=== PATIENT | male | born 1985 | race American Indian/Alaskan Native ===

== ENCOUNTER 2019-10-20 19:16 | Emergency (ER) | payer BC ==
[2019-10-20] MEDS ORDERED: HYDROcodone/ACETAMINOPHEN 5-325 MG TAB PO ONE (20:09)
--- NOTE | 2019-10-20 20:33 | Emergency Department Report ---
ED Male HPI - General Chief complaint: Urogenital-Male Stated complaint: LF TESTICLE PAIN Time Seen by Provider: 10/20/19 20:04 Source: patient Mode of arrival: Ambulatory Limitations: No Limitations - History of Present Illness Initial comments: Patient is a 34-year-old male who presents emergency room with complaints of left testicular pain that began 4 days ago. He states he began to have left testicular swelling 3 days ago. He denies any injury. He denies any penile discharge, dysuria, dark urine, abdominal pain, hematuria. He denies ever having this in the past. He denies any past medical history or allergies to medications. - Related Data Previous Rx's Medication Instructions Recorded Last Taken Type Doxycycline Hyclate [Doxycycline 100 mg PO BID 10 Days #20 tab 10/20/19 Unknown Rx Hyclate TAB] traMADoL [Ultram 50 MG tab] 50 mg PO Q6HR PRN #10 tablet 10/20/19 Unknown Rx Allergies Allergy/AdvReac Type Severity Reaction Status Date / Time pollen extracts Allergy Hives Verified 10/20/19 19:28 ED Review of Systems ROS: Stated complaint: LF TESTICLE PAIN Other details as noted in HPI Comment: All other systems reviewed and negative ED Past Medical Hx - Past Medical History Previous Medical History?: No - Surgical History Past Surgical History?: No - Social History Smoking Status: Current Every Day Smoker Substance Use Type: Alcohol, Marijuana - Medications Home Medications: Home Medications Medication Instructions Recorded Confirmed Last Taken Type Doxycycline Hyclate [Doxycycline 100 mg PO BID 10 Days #20 tab 10/20/19 Unknown Rx Hyclate TAB] traMADoL [Ultram 50 MG tab] 50 mg PO Q6HR PRN #10 tablet 10/20/19 Unknown Rx ED Physical Exam - General Limitations: No Limitations General appearance: alert, in no apparent distress - Head Head exam: Present: atraumatic, normocephalic - Eye Eye exam: Present: normal appearance - ENT ENT exam: Present: mucous membranes moist - Respiratory Respiratory exam: Present: normal lung sounds bilaterally. Absent: respiratory distress, wheezes, rales, rhonchi, stridor, chest wall tenderness, accessory muscle use, decreased breath sounds, prolonged expiratory - Cardiovascular Cardiovascular Exam: Present: regular rate, normal rhythm, normal heart sounds. Absent: systolic murmur, diastolic murmur, rubs, gallop - GI/Abdominal GI/Abdominal exam: Present: soft, normal bowel sounds. Absent: distended, tenderness, guarding, rebound, rigid - exam: Present: testicular tenderness (left testicular ttp, edema present to the left scrotal region, ttp over the left epididymal appendage), other (normal testicular lie, normal cremasteric reflex, male hide and skin colerer was not available in the emergency department, Dana, EMT used as a hide and skin colerer). Absent: urethral discharge - Neurological Exam Neurological exam: Present: alert, oriented X3 - Psychiatric Psychiatric exam: Present: normal affect, normal mood - Skin Skin exam: Present: warm, dry, intact ED Course Vital Signs 10/20/19 19:27 Temperature 98.7 F Pulse Rate 86 Respiratory 18 Rate Blood Pressure 121/82 O2 Sat by Pulse 99 Oximetry ED Medical Decision Making - Lab Data Lab Results 10/20/19 Range/Units 20:30 Urine Color Yellow (Yellow) Urine Turbidity Clear (Clear) Urine pH 6.0 (5.0-7.0) Ur Specific [place] 1.025 (1.003-1.030) Urine Protein <15 mg/dl (Negative) mg/dL Urine Glucose (UA) Neg (Negative) mg/dL Urine Ketones Neg (Negative) mg/dL Urine Blood Neg (Negative) Urine Nitrite Neg (Negative) Urine Bilirubin Neg (Negative) Urine Urobilinogen < 2.0 (<2.0) mg/dL Ur Leukocyte Esterase Tr (Negative) Urine WBC (Auto) 12.0 H (0.0-6.0) /HPF Urine RBC (Auto) 4.0 (0.0-6.0) /HPF U Epithel Cells (Auto) 1.0 (0-13.0) /HPF Urine Mucus 1+ /HPF - Radiology Data Radiology results: report reviewed US testicular doppler comp INDICATION / CLINICAL INFORMATION: left testicular swelling and pain. COMPARISON: None available. FINDINGS: Testicular size and echogenicity is normal. Doppler imaging shows normal testicular blood flow. There is a small left hydrocele. The left epididymis is slightly prominent and there are 2 epididymal cysts each measuring approximately 6 mm in diameter. The right epididymis is morphologically normal. There is ovoid structure adjacent to the upper pole of the left testicle consistent with appendix testis. IMPRESSION: 1. Findings suggestive of left epididymitis with small left hydrocele. 2. Small left epididymal cyst. 3. No evidence of testicular torsion. Signer Name: Bro Recinos MD Signed: 10/20/2019 9:52 PM Workstation Name: [id number] Transcribed By: MANISH Dictated By: Bro Recinos MD Electronically Authenticated By: Bro Recinos MD Signed Date/Time: 10/20/192151 DD/ 45 TD/TT: - Medical Decision Making Patient is a 34-year-old male who presents emergency room with complaints of left testicular pain that began 4 days ago. He states he began to have left testicular swelling 3 days ago. He denies any injury. He denies any penile discharge, dysuria, dark urine, abdominal pain, hematuria. He denies ever having this in the past. He denies any past medical history or allergies to medications. Vitals are stable. On exam: left testicular ttp, edema present to the left scrotal region, ttp over the left epididymal appendage, normal testicular lie, normal cremasteric reflex, male hide and skin colerer was not available in the emergency department, [facility] used as a hide and skin colerer. UA with white blood cells and trace leukocyte esterase. G/C sent. US testicular: 1. Findings suggestive of left epididymitis with small left hydrocele. 2. Small left epididymal cyst. 3. No evidence of testicular torsion. Patient given ceftriaxone while in the ED. Patient given prescription for doxycycline. advised pt please take medication as prescribed. Do not drive or operate heavy machinery while taking pain medication. 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 Please have any partner tested and treated as well. Please go to the health department or another clinic for a full STD panel. Do not engage in sexual intercourse for 2 weeks. Please follow-up with a urologist. Return to the emergency room for any new or worsening symptoms. - Differential Diagnosis STD, UTI, hydrocele, epididymitis, orchitis, torsion Critical care attestation.: If time is entered above; I have spent that time in minutes in the direct care of this critically ill patient, excluding procedure time. ED Disposition Clinical Impression: Epididymitis, Epididymal cyst, Left hydrocele Disposition: TO HOME OR SELFCARE Is pt being admited?: No Does the pt Need Aspirin: No Condition: Stable Instructions: Epididymitis (ED), Hydrocele (ED) Additional Instructions: Please take medication as prescribed. Do not drive or operate heavy machinery while taking pain medication. 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 Please have any partner tested and treated as well. Please go to the health department or another clinic for a full STD panel. Do not engage in sexual intercourse for 2 weeks. Please follow-up with a urologist. Return to the emergency room for any new or worsening symptoms. [employer] Address: [address] [place] [id number] Prescriptions: Doxycycline Hyclate [Doxycycline Hyclate TAB] 100 mg PO BID 10 Days #20 tab traMADoL [Ultram 50 MG tab] 50 mg PO Q6HR PRN #10 tablet PRN Reason: Pain , Severe (7-10) Referrals: [facility] [Outside] - 3-5 Days KRISTIN CHRISTIANSON MD [Staff Physician] - 3-5 Days [facility] [Provider Group] - 3-5 Days JUAN MIGUEL PENN MD [Staff Physician] - 3-5 Days Forms: STI Treatment and Prevention Time of Disposition: 22:09 Print Language: VINCENTIAN
[2019-10-20 20:46] LABS: Bilirubin,Urine NEG (Negative); Blood,Urine NEG (Negative); Color,Urine Yellow (Yellow); Mucus,Urine 1+ /HPF; Protein,Urine <15 mg/dL mg/dL (Negative); Urobilinogen,Urine < 2.0 mg/dL (<2.0)
--- NOTE | 2019-10-20 21:57 | Ultrasound Report ---
US testicular doppler comp INDICATION / CLINICAL INFORMATION: left testicular swelling and pain. COMPARISON: None available. FINDINGS: Testicular size and echogenicity is normal. Doppler imaging shows normal testicular blood flow. There is a small left hydrocele. The left epididymis is slightly prominent and there are 2 epididymal cysts each measuring approximate ly 6 mm in diameter. The right epididymis is morphologically normal. There is ovoid structure adjacent to the upper pole of the left testicle consistent with appendix amber tis. IMPRESSION: 1. Findings suggestive of left epididymitis with small left hydrocele. 2. Small left epididymal cyst. 3. No evidence of testicular torsion. Signer Name: Bro Recinos MD Signed: 10/20/2019 9:52 PM Workstation Name: [id number]
[2019-10-20] MEDS ORDERED: LIDOCAINE-MPF (1%) 10 MG/1 ML VIAL 5 ML INFILTRATI ONE (22:01)
[2019-10-20 22:27] VITALS: BP 128/78
== END 2019-10-20 22:27 | disposition home or self-care (01) ==
LOC: ED 19:16
DX: N45.1 Epididymitis (principal); N50.3 Cyst of epididymis; N43.3 Hydrocele, unspecified; F17.200 Nicotine dependence, unspecified, uncomplicated; F12.10 Cannabis abuse, uncomplicated; Z79.899 Other long term (current) drug therapy; Z88.8 Allergy status to other drugs, medicaments and biological substances
CPT/HCPCS: 81001; 87086; 87591; 93975; 96372; 99284; J0696